=== PATIENT | female | born 1975 | race Caucasian/White ===

== ENCOUNTER → 2020-02-23 | Outpatient (CLI) | payer OTHER, BC ==
[~2020-02-23] MED LIST: COLACE100 MG OR; COUMADIN 5 MG TA5 M1 OR; ENDOCET 10-3251 EACH OR; FAMOTIDINE20 MG OR; HYDROXYZINE HCL50 MG PO; IRON325 OR; KEFLEX500 MG OR; LOVENOX SC; METHADONE HCL 110 M1 OR; PERCOCET 10-321 EACH OR; PHENAZOPYRIDIN200 MG OR
== END ==
LOC: SJCVC 09:46 → SJCVCIMAG 09:46
PROVIDERS: ATTEND Internal Medicine Cardiovascular Disease
DX: R94.31 Abnormal electrocardiogram [ECG] [EKG] (principal); I49.9 Cardiac arrhythmia, unspecified; I51.7 Cardiomegaly; D68.59 Other primary thrombophilia; K21.9 Gastro-esophageal reflux disease without esophagitis; D68.51 Activated protein C resistance; Z86.718 Personal history of other venous thrombosis and embolism; Z79.899 Other long term (current) drug therapy; Z87.891 Personal history of nicotine dependence